=== PATIENT | male | born 1995 | race Asian ===

== ENCOUNTER 2024-09-23 03:47 | Emergency (ER) | payer MEDICAID, SELFPAY ==
[2024-09-23 03:47] VITALS: BP 151/97; PULSE 73; RESP 14; TEMP 36.8; O2SAT 98; BMI 24.1
--- NOTE | 2024-09-23 04:07 | EKG12_ITS ---
Test Reason : DYSRHYTHMIA Blood Pressure : */* mmHG Vent. Rate : 55 BPM Atrial Rate : 55 BPM P-R Int : 164 ms QRS Dur : 114 ms QT Int : 446 ms P-R-T Axes : 64 88 37 degrees QTcB Int : 426 ms Sinus bradycardia Otherwise normal ECG Confirmed by KEMAR ANDRES, JORDON ([id number]), acquisition editor ROWDY AMARO ([id number]) on 09/23/2024 8:18:01 AM Referred By: Confirmed By: JORDON REINOSO MD
[2024-09-23] MEDS: Ketorolac 30 MG/ML Syringe IV (04:14)
[2024-09-23] MEDS: Orphenadrine 60 MG/2 ML Ampul IV (04:14)
--- NOTE | 2024-09-23 04:20 | RAD_ITS ---
PROCEDURE: CHEST PA AND LATERAL 09/23/2024 REASON FOR EXAM: PAIN TECHNIQUE: CHEST PA AND LATERAL COMPARISON: None FINDINGS: Both lung pink are clear with no evidence of nodules or infiltrates. No pneumothorax or pleural effusion noted bilaterally. Heart size and its configuration appear to be within normal limits. Both the annmarie appear normal. Thoracic rib cage is intact. RAD/Chest PA and Lateral IMPRESSION: No evidence of acute cardiopulmonary disease. Reading [facility]
[2024-09-23 04:36] LABS: D-Dimer Quantitative (DVT/PE) 0.27 FEU/ug/m (0.27-0.49)
--- NOTE | 2024-09-23 04:51 | EDS_ITS ---
HPI History of Present Illness Chief Complaint: Back Informant: patient Narrative Narrative: Patient is a 29-year-old male who reports no significant past medical history. He states that he awoke roughly 4 hours ago from sleep and noticed pain in the left upper back. He states has been no recent trauma or excessive activity. However despite taking [id number] medications the pain has kept him from sleeping and therefore he presents for evaluation. He denies any recent travel surgery or history of DVT/PE. He states that he has not been sick with cough or congestion. He denies any family history of cardiac disease at a young age. However because of his persistent pain and inability to sleep he presents for evaluation [facility] Medical History no medical history Home Medications ?Medication ?Instructions ?Recorded ?Last Taken ?Type methocarbamol 500 mg tablet 1,000 mg (2 x 500 mg) PO 4 X/DAY 09/23/24 Unknown Rx PRN Muscle pain/spasm #56 tabs oxycodone-acetaminophen 5 mg-325 1 tab PO Q6H PRN pain 3 days #12 09/23/24 Unknown Rx mg tablet (Percocet) tabs permethrin 5 % topical cream 1 applic topical Q14D 2 d oses #60 09/23/24 Unknown Rx (Elimite) grams sertraline 100 mg tablet 100 mg PO DAILY 09/23/24 Unk nown History Allergy/AdvReac Type Severity Reaction Status Date / Time No Known Allergies Allergy Verified 09/23/24 03:50 Social History Smoking Status: Never smoker [facility] ED Constitutional Constitutional ED: Denies chills or fever(s) Eyes Eyes: Denies change in vision ENT ENT ED: Denies sore throat Cardiovascular Cardiovascular: Denies chest pain, palpitations or racing heartbeat Respiratory/Chest Respiratory/Chest: Denies cough or dyspnea Gastrointestinal Gastrointestinal: Denies abdominal pain, diarrhea, nausea or vomiting Musculoskeletal Musculoskeletal: Reports back pain; Denies neck pain Integumentary Denies Abrasions Neurologic Neurologic: Denies headache(s) Hematologic/Lymphatic Hematologic/Lymphatic: Denies easy bleeding or easy bruising EXAM Physical Exam Const Vital Signs: 09/23/24 03:47 09/23/24 04:52 Temperature 98.2 F 98.2 F Temperature Source Oral Pulse Rate 73 68 Respiratory Rate 14 18 Blood Pressure 151/97 H 129/84 H Blood Pressure Mean 115 99 Pulse Ox 98 99 Oxygen Delivery Method Room Air Positive well nourished and well developed General Appearance ED: well developed; Negative for pallor HEENT HEENT Narrative: Normocephalic atraumatic Eyes PERRL and EOMs intact bilaterally General Eye ED: Negative for scleral icterus Neck supple Neck Narrative: No nuchal rigidity or meningeal signs Chest Wall palpation of chest normal Resp normal respiratory effort and clear to auscultation bilaterally Cardio regular rate and regular rhythm Rate: other Other Details: Regular rate and rhythm without murmurs rubs or gallops Radial and carotid pulses are equal and symmetric Back/Spine Back/Spine Narrative: No bony deformity or step-off of the thoracic or lumbar spine no midline tenderness to palpation Patient has pain in the left upper parathoracic muscle belly region near the scapula No overlying soft tissue changes to suggest trauma or infection Extremity normal to inspection Extremity Narrative: Left upper extremity is neurovascularly intact; AIN/PIN are intact normal. Patient has full active range of motion. No obvious bony deformity or joint effusion of the left shoulder noted. Negative sulcus sign. No pain with palpation over top of the AC joint. No asymmetric edema no pitting edema negative Homans' sign bilaterally All compartments are soft and compressible going against compartment syndrome Neuro oriented x3, CN's II-XII intact bilaterally and no sensory deficits noted Sensorium / Orientation: alert Motor Exam: strength 5/5 throughout Psych Mood & Affect: anxious Skin no rashes or lesions noted and no wounds General Skin Exam: Negative for jaundice or pallor MDM MDM MDM Narrative Medical decision making narrative: Patient presented to the ER hypertensive otherwise with stable vitals. He reported pain in the left upper back without trauma or excessive activity. History and exam will most likely correlate with muscle tension and spasm but in order to rule out underlying disease processes such as pneumonia pneumothorax or Pancoast tumor a chest x-ray was obtained. He is low risk for PE or dissection but as this could be a potential cause of his discomfort as there has been no trauma or excessive activity a D-dimer was ordered. This also was normal going against a PE or dissection. EKG was obtained to rule out causes such as a cardiac ischemia or dysrhythmia. EKG was also normal. Therefore at this time patient symptoms are most likely related to muscle tension and spasm and there is no signs of secondary infection such as cellulitis abscess or shingles. He reports that there is resolution of the pain after Toradol and Norflex were provided. Therefore there is no need for further intervention and he is otherwise safe for discharge History & Record Review Discussion w/independent historian: Patient Lab Data Attestation: I reviewed the patient's lab results. Labs: Laboratory Results - last 24 hr 09/23/24 04:15 D-Dimer Quant (PE/DVT) 0.27 Radiography Diagnostic Testin view chest x-ray is interpreted by the emergency medicine physician reveals no acute infiltrate pneumothorax pleural effusion or widening of the mediastinum Discharge Plan Triage Chief Complaint: Back ED Provider: Russel Cheung Dx/Rx/DC Orders Clinical Impression: Spasm of thoracic back muscle Instructions: ED Back Spasm, No Trauma Prescriptions: New methocarbamol 500 mg tablet 1,000 mg PO 4X/DAY PRN (Reason: Muscle pain/spasm) Qty: 56 0RF oxycodone-acetaminophen [Percocet] 5-325 mg tablet 1 tab PO Q6H PRN (Reason: pain) 3 Days Qty: 12 0RF permethrin [Elimite] 5 % cream 1 applic topical Q14D Qty: 60 0RF Rx Instructions: apply second treatment 14 days after first treatment if live lice remain No Action sertraline 100 mg tablet 100 mg PO DAILY Primary Care Provider: Care Physician,No Primary Referrals: Santi Lisa MD [Med Staff - Active Staff] - Care Physician,No Primary [Primary Care Provider] - Activity Restrictions/Additional Instructions: Your workup shows no sign of acute cardiac event or blood clot or pneumonia. This indicates your symptoms are most likely musculoskeletal in nature. Take the prescribed medication as directed to help control your symptoms and return to the ER should you have any further concerns Print Language: Slovak Disposition Disposition: Home, Self Care
[2024-09-23 04:52] VITALS: BP 129/84; PULSE 68; RESP 18; TEMP 36.8; O2SAT 99
== END 2024-09-23 05:05 | disposition home or self-care (01) ==
LOC: ED 04:59
PROVIDERS: Emergency Provider Emergency Medicine; Visit Provider Emergency Medicine
DX: M62.830 Muscle spasm of back (principal)
CPT/HCPCS: 71046; 85379; 93005; 96374; 96375; 99284; A4216